=== PATIENT | male | born 1950 | race Caucasian/White ===

== ENCOUNTER 2023-03-01 11:38 | Outpatient (CLI) | payer OTHER, SELFPAY ==
[2023-03-01 12:19] LABS: Basophils Absolute Auto 0.1 K/mm3 (0.0-0.1); Basophils Percent Auto 0.8 % (0.2-1.2); Eosinophils Absolute Auto 0.3 K/mm3 (0-0.3); Eosinophils Percent Auto 3.4 % (0-4.4); Hematocrit 51.6 % (42.0-52.0); Hemoglobin 16.9 g/dL (14.0-18.0); Immature Granulocyte Absolute 0.03 K/mm3 (0.00-0.031); Immature Granulocyte Percent A 0.4 % (0-0.5); Immature Reticulocyte Fraction 11.7 % (3.0-15.9); Lymphocytes Absolute Auto 1.11 K/mm3 (0.9-3.2); Lymphocytes Percent Auto 14.9 % (18.3-44.2); Mean Corpuscular HGB Conc 32.8 g/dl (32-36); Mean Corpuscular Hemoglobin 30.6 pg (26-34); Mean Corpuscular Volume 93.5 fl (80-100); Mean Platelet Volume 10.1 fl (7.4-10.4); Monocytes Absolute Auto 0.8 K/mm3 (0.1-0.6); Monocytes Percent Auto 10.2 % (2.6-8.5); Neutrophils Absolute Auto 5.2 K/mm3 (1.3-6.7); Neutrophils Percent Auto 70.3 % (45.5-73.1); Platelet Count Result 174 k/mm3 (150-375); Red Blood Count 5.52 M/mm3 (4.6-6.20); Red Cell Distribution Width 13.8 % (11.5-14.5); Reticulocyte Hemoglobin Conten 34.5 pg (28.2-35.7); Reticulocyte Percent 1.33 % (0.7-4.3); Reticulocytes Absolute 0.07 M/mm3 (0.02-0.1); White Blood Count 7.4 K/mm3 (4.5-10.0)
[2023-03-01 12:35] LABS: Alanine Aminotransferase 26 U/L (6-50); Alkaline Phosphatase 56 U/L (38-126); Aspartate Amino Transferase 27 U/L (17-59); Bilirubin,Total 2.1 mg/dL (0.2-1.3); Lactate Dehydrogenase 173 U/L (120-246)
[2023-03-05 19:49] LABS: Haptoglobin 82 mg/dL (43-212)
== END 2023-03-01 11:39 | disposition home or self-care (01) ==
LOC: ANHLAB 11:41
PROVIDERS: PCP Family Medicine; Visit Provider Nurse Practitioner
DX: E80.6 Other disorders of bilirubin metabolism (principal); Z86.010 Personal history of colon polyps
CPT/HCPCS: 36415; 80076; 83010; 83615; 85025; 85046

== ENCOUNTER → 2023-03-16 07:32 | Outpatient (CLI) | payer OTHER, SELFPAY ==
--- NOTE | ~2023-03-16 | US_ITS ---
Limited Abdominal Sonogram: Real-time sonographic imaging of the right upper quadrant was performed. Clinical History: Elevated bilirubin Findings: The liver appears normal with no evidence of mass lesion or bile duct dilatation. Main por rere vein demonstrates normal direction of flow. The gallbladder is partially distended, with probable echogenic gallstone present. No definite gallbladder wall thickening. The common bile duct measures 4 mm. The visualized pancreas, aorta, and IVC are unremarkable. Impression: Cholelithiasis. Reviewed, dictated and finalized at location [facility] Impression: Cholelithiasis.
== END ==
PROVIDERS: PCP Family Medicine; Visit Provider Nurse Practitioner
DX: K80.20 Calculus of gallbladder without cholecystitis without obstruction (principal); E80.6 Other disorders of bilirubin metabolism
CPT/HCPCS: 76705

== ENCOUNTER 2023-05-18 02:50 | Day surgery (SDC) | payer MEDICARE, SELFPAY ==
[2023-04-19 15:12] VITALS: BMI 45.7
--- NOTE | 2023-05-16 10:30 | SUR.PREOP ---
Patient called regarding upcoming procedure. Reviewed preop instructions, appointment times, and procedure prep.
[2023-05-18 07:37] VITALS: BP 149/86; PULSE 70; RESP 20; TEMP 36.4; O2SAT 97
[2023-05-18] MEDS: LACTATED RINGERS 1,000 ML 150 ML IV CONT (07:43)
--- NOTE | 2023-05-18 08:37 | PM.HPGS ---
History of Present Illness History of Present Illness Consent: Risks, benefits, and alternatives have been discussed and questions answered. Patient agrees to proceed with procedure. Chief complaint: hx colon polyps Narrative: Phoenix Sanz is a 72 year old male with polyps 5 years ago Review of Systems Constitutional: Constitutional: Denies headache(s) and Denies weakness Eyes: Eyes: Denies blurry vision ENT: Reports Normal hearing present, Denies headache(s) and Denies neck pain Cardiovascular: Cardiovascular: Denies chest pain and Denies dyspnea Respiratory: Respiratory: Denies dyspnea Gastrointestinal: Gastrointestinal: Reports no additional gastrointestinal complaints Genitourinary: Genitourinary: Denies dysuria Musculoskeletal: Musculoskeletal: Denies neck pain Integumentary/Breasts: Skin/Breast: Denies dry skin Neurologic: Reports Normal hearing present, Denies headache(s) and Denies weakness Psychiatric: Psychiatric: Denies anxiety Endocrine: Endocrine: Denies change in body appearance Hematologic/Lymphatic: Hematologic/Lymphatic: Denies easy bleeding Allergic/Immunologic: Allergic/Immunologic: Denies urticaria [facility] Past Medical History Medical History (Updated 03/01/23 @ 11:34 by Nicolasa Herndon APRN) Hx of colonic polyp Hyperbilirubinemia Hypertension Lymphedema Obesity Surgical History Surgical History (Updated 03/01/23 @ 11:34 by Nicolasa Herndon APRN) Hx of tonsillectomy Social History Social History (System 06/04/19 @ 16:24 by Aisha Darling) Smoking packs per day: 2 Smoking cigarettes per day: 40.0 Smoking status: Former smoker Tobacco type: cigarettes Living arrangements: with family Meds Home Medications and Allergies Home Medications Medication Instructions Recorded Confirmed Type amlodipine 5 mg tablet 5 mg PO DAILY 03/01/23 05/18/23 History cholecalciferol (vitamin D3) 25 25 mcg PO DAILY 03/01/23 05/18/23 History mcg (1,000 unit) capsule losartan 100 1 tablet PO DAILY 03/01/23 05/18/23 History mg-hydrochlorothiazide 12.5 mg tablet oxymetazoline 0.025 % nasal spray 1 spray intranasal PRN PRN Nasal 03/01/23 05/18/23 History Congestion sildenafil 100 mg tablet 100 mg PO PRN PRN Erectile 03/01/23 05/18/23 History Dysfunction testosterone cypionate 200 mg/mL 200 mg IM WEEKLY 03/01/23 05/18/23 History intramuscular kit Allergies Allergy/AdvReac Type Severity Reaction Status Date / Time No Known Allergies Allergy Verified 05/18/23 07:36 Vital Signs Vital Signs - 24 hr 05/18/23 07:37 Temperature 97.6 F Pulse Rate 70 Respiratory Rate 20 Blood Pressure 149/86 H Pulse Oximetry 97 Oxygen Delivery Room Air Exam Const: General: comfortable and no acute distress HENMT: Face/Nose/Sinus: Normal nares present Eyes: General: appearance normal, both eyes and all related structures Neck: Neck: no JVD Resp: Auscultation: clear to auscultation bilaterally Cardio: Rate: regular rate Rhythm: regular rhythm GI: Inspection: non-distended GI Palp: Yes Soft to palpation Skin: General skin exam: normal color Neuro: General: gait normal Speech: normal speech Extrem: General: normal to inspection Psych: Mental Status: mental status grossly normal Assessment and Plan Assessment and plan (1) Hx of colonic polyp: Code(s): Z86.010 - Personal history of colonic polyps Status: Acute Assessment and Plan: colonoscopy
--- NOTE | 2023-05-18 09:07 | P.PNAN_ITS ---
Anes - Initial Pre Proc Eval Procedure: Operation Date: 05/18/23 09:00 Proposed Procedures p Colonoscopy - Kar Bedolla MD Date/Time: 05/18/23 09:07 Surgeon: Kar Bedolla MD Pre Op Diagnosis: hx colon polyps Patient Data Age: 72 Gender: M Height: 1.91 m Weight: 170.9 kg Last Vital Signs Temp 97.6 F 05/18/23 07:37 Pulse 70 05/18/23 07:37 Resp 20 05/18/23 07:37 BP 149/86 H 05/18/23 07:37 Pulse Ox 97 05/18/23 07:37 O2 Del Method Room Air 05/18/23 07:37 Allergies Allergy/AdvReac Type Severity Reaction Status Date / Time No Known Allergies Allergy Verified 05/18/23 07:36 Home Medications Medication Instructions Recorded Confirmed Type amlodipine 5 mg tablet 5 mg PO DAILY 03/01/23 05/18/23 History cholecalciferol (vitamin D3) 25 25 mcg PO DAILY 03/01/23 05/18/23 History mcg (1,000 unit) capsule losartan 100 1 tablet PO DAILY 03/01/23 05/18/23 History mg-hydrochlorothiazide 12.5 mg tablet oxymetazoline 0.025 % nasal spray 1 spray intranasal PRN PRN Nasal 03/01/23 05/18/23 History Congestion sildenafil 100 mg tablet 100 mg PO PRN PRN Erectile 03/01/23 05/18/23 History Dysfunction testosterone cypionate 200 mg/mL 200 mg IM WEEKLY 03/01/23 05/18/23 History intramuscular kit Patient hx anesthesia problems: none Family hx anesthesia problems: none Results Review: All pre-operative results and documents have been reviewed as part of the pre- operative evaluation. [facility] Past Medical History Medical History (Updated 03/01/23 @ 11:34 by Nicolasa Herndon APRN) Hx of colonic polyp Hyperbilirubinemia Hypertension Lymphedema Obesity Surgical History Surgical History (Updated 03/01/23 @ 11:34 by Nicolasa Herndon APRN) Hx of tonsillectomy Social History Social History (System 06/04/19 @ 16:24 by Aisha Darling) Smoking packs per day: 2 Smoking cigarettes per day: 40.0 Smoking status: Former smoker Tobacco type: cigarettes Living arrangements: with family Dileep Red[place] Final PreProcedure Day of Procedure 05/18/23 09:07 Patient weight: morbidly obese Heart: regular rate and rhythm Lungs: clear to auscultation Airway: Mallampati scale class III Neurological: alert and oriented Last oral intake: >/= 8 hours ASA classification: III Emergent: no Anesthetic plan: proceed Anesthesia type and monitoring: general GIVS and standard monitoring Results Review: All pre-operative results and documents have been reviewed as part of the pre- operative evaluation. Informed Consent: The patient's anesthetic plan and its attendant risks and benefits were discussed with the patient/family/POA. Questions were solicited and answers provided to the satisfaction of the patient/family/POA.
[2023-05-18 09:08] VITALS: BP 102/66; PULSE 74; RESP 21; O2SAT 94
[2023-05-18 09:18] VITALS: BP 111/68; PULSE 70; RESP 20; O2SAT 95
[2023-05-18 09:28] VITALS: BP 111/68; PULSE 63; RESP 20; O2SAT 95
== END 2023-05-18 09:35 | disposition home or self-care (01) ==
PROVIDERS: PCP Family Medicine; Visit Provider Internal Medicine Gastroenterology
PROC: 0DJD8ZZ Inspection of Lower Intestinal Tract, Via Natural or Artificial Opening Endoscopic (ICD-10-PCS; CPT 45378; principal; 2023-05-18 09:00)
DX: Z12.11 Encounter for screening for malignant neoplasm of colon (principal); D12.0 Benign neoplasm of cecum; D12.2 Benign neoplasm of ascending colon; D12.4 Benign neoplasm of descending colon; D12.8 Benign neoplasm of rectum; I10 Essential (primary) hypertension; E66.9 Obesity, unspecified; Z68.42 Body mass index [BMI] 45.0-49.9, adult; Z87.891 Personal history of nicotine dependence
CPT/HCPCS: 45385; 88305; J2704; J7120